=== PATIENT | male | born 1980 | race Caucasian/White ===

== ENCOUNTER 2018-03-22 18:48 | Emergency (ER) | payer MEDICAID ==
[~2018-03-22] VITALS: Ht 172.7 cm; Wt 90.3 kg
[2018-03-22 18:56] VITALS: Ht 172.7 cm; Wt 90.3 kg
[2018-03-22 19:55] VITALS: BP 122/78
== END 2018-03-22 19:55 | disposition home or self-care (01) ==
LOC: ED 18:48
DX: K59.00 Constipation, unspecified (principal); K64.9 Unspecified hemorrhoids

== ENCOUNTER 2019-04-02 09:35 | Emergency (ER) | payer SELFPAY ==
[~2019-04-02] VITALS: Ht 177.8 cm; Wt 95.3 kg
[2019-04-02 09:48] VITALS: Ht 177.8 cm; Wt 95.3 kg
[2019-04-02 10:54] VITALS: BP 131/89
== END 2019-04-02 10:54 | disposition home or self-care (01) ==
LOC: ED 09:35
DX: J02.9 Acute pharyngitis, unspecified (principal)
CPT/HCPCS: J7512

== ENCOUNTER 2019-05-24 22:37 | Emergency (ER) | payer SELFPAY ==
[~2019-05-24] VITALS: Ht 175.3 cm; Wt 93.0 kg
[2019-05-24 22:41] VITALS: Ht 175.3 cm; Wt 93.0 kg
[2019-05-24 23:43] LABS: BASOPHIL % 0.1 % (0-2); PLATELET COUNT 344 x10^3mcL (130-400)
[2019-05-24 23:44] LABS: RED CELL DISTRIBUTION WIDTH 14.6 % (11.5-14.5)
[2019-05-24 23:55] LABS: CALCIUM 9.7 mg/dL (8.5-10.1); CARBON DIOXIDE 24.6 mmol/L (21-32); CHLORIDE SERUM 104 mmol/L (98-107); CREATININE SERUM 0.9 mg/dL (0.7-1.3); GFR1 > 60 mL/min; GLUCOSE SERUM 121 mg/dL (74-106); POTASSIUM SERUM 4.2 mmol/L (3.5-5.1); SODIUM SERUM 142 mmol/L (136-145)
[2019-05-25 00:02] LABS: ALBUMIN 4.2 g/dL (3.4-5.0); ALKALINE PHOSPHATASE 71 U/L (46-116); ALT/SGPT 64 U/L (16-63); AMYLASE 78 U/L (25-115); AST/SGOT 22 U/L (15-37); BILIRUBIN TOTAL 0.7 mg/dL (0.20-1.00); LIPASE 98 IU/L (73-393)
[2019-05-25 05:50] VITALS: BP 104/69
== END 2019-05-25 05:50 | disposition home or self-care (01) ==
LOC: ED 22:37
PROVIDERS: Specialist
DX: R11.2 Nausea with vomiting, unspecified (principal); D72.829 Elevated white blood cell count, unspecified; R10.84 Generalized abdominal pain
CPT/HCPCS: J1885; J2405; J3490